=== PATIENT | male | born 1970 | race Caucasian/White ===

== ENCOUNTER 2024-05-26 07:17 | Day surgery (SDC) | payer OTHER ==
[2024-05-21 15:49] LABS: Absolute Eosinophils 0.2 K/uL (0-0.5); Absolute Monocytes 0.6 K/uL (0.1-1.3); Absolute Neutrophil 5.8 K/uL (1.8-8.0); Basophils % 0.6 % (0-1.3); Eosinophils % 2.1 % (0-4.4); Hematocrit 43.9 % (39.6-49.0); Hemoglobin 14.5 g/dL (13.6-17.9); Lymphocytes % 23.6 % (15.3-44.8); MCH 30.3 pg (27.0-35.0); MCHC 33.1 g/dL (32.0-36.0); MCV 91.7 fL (80-100); MPV 8.3 fL (7.6-11.3); Monocytes % 6.3 % (3.3-12.3); Neutrophils % 67.4 % (41.7-73.7); Platelets 368 thou/uL (152-406); RBC Red Blood Cell Count 4.78 M/uL (4.33-5.43); Red Cell Distribution Width 13.1 % (12.1-15.2)
[2024-05-26] MEDS: Ringers Lactate 1,000 ML IV ONE (07:55)
[2024-05-26] MEDS ORDERED: LIDOCAINE 1% MPF 5 ML VIAL ONE (08:12)
[2024-05-26] MEDS ORDERED: propofoL 200 MG/20 ML VIAL IV ONE (08:13)
[2024-05-26] MEDS ORDERED: HYDRALAZINE HCL 20 MG/ML VIAL ONE (08:47)
[2024-05-26 10:23] VITALS: TEMP 97.5
--- NOTE | 2024-05-26 10:23 | EKG ---
Test Date: 2024-05-21 Test Time: 16:38:02 Laundry Manager: MEASUREMENT RESULTS: Intervals: Rate: 91 W[place]: 180 QRSD: 78 QT: 334 QTc: 410 [place]: P: 67 WV: 180 QRS: 42 T: 61 INTERPRETIVE STATEMENTS: Normal sinus rhythm Normal ECG No previous ECG available for comparison Electronically Signed On 05-26-24 10:21:03 BULK STATION OPERATOR by Tato Mejia
[2024-05-26 10:24] VITALS: BP 133/83; O2SAT 98
== END 2024-05-26 09:30 | disposition home or self-care (01) ==
LOC: OR 07:17
PROVIDERS: ATTEND Surgery
PROC: 0DJD8ZZ Inspection of Lower Intestinal Tract, Via Natural or Artificial Opening Endoscopic (ICD-10-PCS; principal; 2024-05-26 08:30)
DX: Z12.11 Encounter for screening for malignant neoplasm of colon (principal); Z86.0100 Personal history of colon polyps, unspecified; K64.4 Residual hemorrhoidal skin tags; K64.8 Other hemorrhoids
CPT/HCPCS: 93005; 85025; 80048; 36415; 45378; J0360; J2704; J2003; J7120